=== PATIENT | female | born 1970 | race Asian ===

== ENCOUNTER 2023-05-27 08:54 | Outpatient (CLI) | payer MEDICAID, SELFPAY | END 2023-05-27 08:55 | disposition home or self-care (01) | PROVIDERS: PCP Family Medicine; Visit Provider Family Medicine | DX: Z00.00 Encounter for general adult medical examination without abnormal findings (principal); E03.9 Hypothyroidism, unspecified; Z13.6 Encounter for screening for cardiovascular disorders; Z13.1 Encounter for screening for diabetes mellitus | CPT/HCPCS: 80061; 82947; 84443 ==